=== PATIENT | male | born 1955 ===

== ENCOUNTER → 2018-05-16 | Emergency (ER) | payer OTHER ==
[~2018-05-16] VITALS: Ht 172.7 cm; Wt 95.3 kg
[~2018-05-16] MED LIST: LOSARTAN-HCTZ1 EACH; PROTONIX40 M1; RITALIN LA10 MG; RITALIN20 MG; TAMS0.4C; ZOLOFT25 MG
== END | disposition home or self-care (01) ==
LOC: ER 08:25
DX: K29.60 Other gastritis without bleeding (principal)